=== PATIENT | female | born 1985 | race Caucasian/White ===

== ENCOUNTER 2017-03-21 11:10 | Emergency (ER) | payer OTHER ==
[~2017-03-21] VITALS: Ht 167.6 cm; Wt 68.9 kg
[2017-03-21] MEDS ORDERED: DERMABOND TOPICAL SKIN ADHESIVE TOP ONE (12:45)
[2017-03-21] MEDS ORDERED: AMOX500C PO (12:51)
[2017-03-21 12:56] VITALS: BP 112/58
== END 2017-03-21 13:09 | disposition home or self-care (01) ==
LOC: M ED 12:58
DX: S61.412A Laceration without foreign body of left hand, initial encounter (principal); W26.0XXA Contact with knife, initial encounter; Y92.019 Unspecified place in single-family (private) house as the place of occurrence of the external cause; Y93.89 Activity, other specified; Y99.8 Other external cause status; Z88.2 Allergy status to sulfonamides

== ENCOUNTER → 2017-04-23 | Outpatient (CLI) | payer OTHER ==
[~2017-04-23] MED LIST: AMOX500C PO
[2017-04-23 13:30] LABS: MEAN CORPUSCULAR HEMOGLOBIN 31.9 pg (27.0-33.0); MEAN CORPUSCULAR HGB CONC 34.3 g/dl (32.0-36.5); MEAN CORPUSCULAR VOLUME 92.9 fl (80.0-96.0); RED CELL DISTRIBUTION WIDTH 12.5 % (11.5-14.5)
[2017-04-24 08:55] LABS: WHITE BLOOD COUNT 9.6 K/mm3 (4.0-10.0)
== END ==
LOC: M LAB 11:22
PROVIDERS: ATTEND Advanced Practice Midwife
DX: Z34.82 Encounter for supervision of other normal pregnancy, second trimester (principal)

== ENCOUNTER 2017-06-14 15:55 | Emergency (ER) | payer OTHER ==
[~2017-06-14] VITALS: Ht 167.6 cm; Wt 75.9 kg
[2017-06-14] MEDS ORDERED: NS 500 ML IV ONE (16:45)
[2017-06-14] MEDS ORDERED: NS 1,000 ML IV SCH (16:45)
[2017-06-14 17:23] LABS: BASO % 0.5 % (0.0-1.0); EOS % 0.3 % (0.0-3.0); LARGE UNSTAINED CELL # 0.2 K/mm3 (0.0-0.4); LARGE UNSTAINED CELL % 1.6 % (0.0-4.0); LYMPH # 1.5 K/mm3 (1.5-4.5); LYMPH % 16.4 % (24.0-44.0); MEAN CORPUSCULAR HGB CONC 34.3 g/dl (32.0-36.5); MEAN CORPUSCULAR VOLUME 87.5 fl (80.0-96.0); MONO # 0.5 K/mm3 (0.0-0.8); MONO % 5.2 % (0.0-5.0); NEUTROPHILS % 76.1 % (36.0-66.0); PLATELET COUNT, AUTOMATED 204 k/mm3 (150-450); RED CELL DISTRIBUTION WIDTH 12.5 % (11.5-14.5); WHITE BLOOD COUNT 9.2 K/mm3 (4.0-10.0)
[2017-06-14 17:29] LABS: INR 0.89
[2017-06-14 17:36] LABS: ALBUMIN 2.5 GM/DL (3.2-5.2); ALT/SGPT 14 U/L (12-78); ANION GAP 7 MEQ/L (8-16); AST/SGOT 12 U/L (15-37); BILIRUBIN,DIRECT < 0.1 MG/DL (0.0-0.2); BLOOD UREA NITROGEN 6 MG/DL (7-18); CALCIUM LEVEL 8.1 MG/DL (8.5-10.1); CARBON DIOXIDE LEVEL 26 MEQ/L (21-32); CHLORIDE LEVEL 105 MEQ/L (98-107); CREATININE FOR GFR 0.75 MG/DL (0.55-1.02); GLOMERULAR FILTRATION RATE > 60.0 (>60); GLUCOSE, FASTING 64 MG/DL (70-105); MAGNESIUM LEVEL 1.7 MG/DL (1.8-2.4); POTASSIUM SERUM 3.7 MEQ/L (3.5-5.1); SODIUM LEVEL 138 MEQ/L (136-145)
[2017-06-14 17:42] LABS: ALBUMIN/GLOBULIN RATIO 0.64 (1.00-1.93); ALKALINE PHOSPHATASE 139 U/L (45-117); BILIRUBIN,TOTAL 0.2 MG/DL (0.2-1.0); FREE T4 0.98 NG/DL (0.76-1.46); TOTAL PROTEIN 6.4 GM/DL (6.4-8.2)
--- NOTE | 2017-06-14 18:29 | ECGEPIP ---
Stationary ECG Study [facility] - ED Test Date: 2017-06-14 Pat Name: RUTH CASTRO Department: Room: - Gender: F Psychiatry Resident: abel : 1985 Requested By: Lore Sheldon Order Number: [id number] Reading MD: Lore Sheldon Measurements Intervals [place] Rate: 108 P: 48 ME: 137 QRS: 41 QRSD: 78 T: 29 QT: 315 QTc: 423 Interpretive Statements SINUS TACHYCARDIA NONSPECIFIC T-WAVE ABNORMALITY ABNORMAL RHYTHM ECG NO PRIOR FOR COMPARISON Electronically Signed On 06-14-2017 18:29:05 EDT by Lore Sheldon
--- NOTE | 2017-06-14 18:40 | REPUSA ---
CLINICAL HISTORY: Chest pain. COMMENTS: Real time sonography with duplex doppler of the extremities bilaterally was performed with attention to the major deep venous structures. Evaluation reveals the common femoral, superficial femoral, popliteal and posterior tibial veins vik aterally to be completely compressible without intraluminal thrombus. There is normal spontaneous pha sic flow and augmentation in all deep veins. The greater saphenous/common femoral vein junctions are patent bilaterally. IMPRESSION: No evidence of DVT in the lower extremities bilaterally. Thank you for your kind referral of this patient.
[2017-06-14] MEDS ORDERED: ACETAMINOPHEN TAB 650MG DOSE (2X325MG) PO ONE (18:45)
[2017-06-14] MEDS ORDERED: MAG SULF 1GM/100ML (MAG RUN) 1 GM in APPROPRIATE DILUENT 1 EA IV ONE (18:45)
[2017-06-14] MEDS ORDERED: ISOVUE-370 76% 100ML VIAL (Q9967) As Ordered ONE (18:47)
--- NOTE | 2017-06-14 20:00 | REPUSA ---
History: CP. Comparison: No prior CTA of the chest available Technique: A CT-pulmonary angiogram was performed. A dose of intravenous contrast was administered. A xial images were displayed, as were sagittal and coronal reconstructions. Findings: No CT evidence of pulmonary embolism is identified. There is no evidence of thoracic aortic aneurysm or dissection. No air space consolidation is identified in the lungs. There is no evidence of pulmonary edema. No pa thologically enlarged hilar or mediastinal lymph nodes are identified. No significant pleural or jaylen cardial fluid collection is seen. There is no evidence of pneumothorax. The included portion of the upper abdomen demonstrates a 15 mm water density nodule in the left adren al gland compatible with adenoma. Impression: No evidence of pulmonary embolism is identified. 15 mm left adrenal adenoma.
[2017-06-14 20:29] VITALS: BP 104/60
--- NOTE | 2017-06-15 07:45 | REP ---
PA and lateral chest: There are no comparisons. The lung escalante are clear. The cardiac size is normal The srinivasa, mediastinum, and bony thorax are unremarkable. Impression: Negative PA and lateral chest. Signed by Jose Antonio Morel MD 06/15/2017 07:36 A
== END 2017-06-14 20:51 | disposition home or self-care (01) ==
LOC: M ED 15:55
DX: S29.001A Unspecified injury of muscle and tendon of front wall of thorax, initial encounter (principal); D27.9 Benign neoplasm of unspecified ovary; Z87.891 Personal history of nicotine dependence; Z82.49 Family history of ischemic heart disease and other diseases of the circulatory system; X58.XXXA Exposure to other specified factors, initial encounter; Y92.9 Unspecified place or not applicable; Y93.9 Activity, unspecified; Y99.9 Unspecified external cause status; R00.0 Tachycardia, unspecified; R94.31 Abnormal electrocardiogram [ECG] [EKG]
CPT/HCPCS: 71020; 71275; 80048; 80076; 82550; 82553; 83690; 83735; 83880; 84439; 84443; 85025; 85610; 85730; 86140; 93005; 93041; 93970; 94760; 99284; J3475; Q9967

== ENCOUNTER → 2017-06-18 | Outpatient (REF) | payer OTHER ==
[~2017-06-18] MED LIST changes: +ACET30TAB PO; +ACET50TA PO; +IBUP-1114 PO; +PRENTAB9 PO; +UNIS25TA2 PO
== END ==
LOC: M LAB REF 12:55
PROVIDERS: ATTEND Advanced Practice Midwife
DX: Z34.83 Encounter for supervision of other normal pregnancy, third trimester (principal)

== ENCOUNTER 2017-07-10 15:40 | Inpatient (IN) | payer OTHER ==
[~2017-07-10] VITALS: Ht 167.6 cm; Wt 75.0 kg
[~2017-07-10 15:40] MED LIST changes: -ACET30TAB PO; -ACET50TA PO; -IBUP-1114 PO; -PRENTAB9 PO; -UNIS25TA2 PO
[2017-07-10 16:01] VITALS: BP 124/75
[2017-07-10] MEDS ORDERED: LACTATED RINGER'S 1000 ML IV STA (16:41)
[2017-07-10] MEDS ORDERED: PENICILLIN G POTASSIUM IV 5 MU in D5W MINI-BAG PLUS 100 ML IV STA (16:41)
[2017-07-10] MEDS ORDERED: UNIS25TA2 PO (16:53)
[2017-07-10] MEDS ORDERED: LR 1,000 ML IV SCH (16:56)
[2017-07-10] MEDS ORDERED: miSOPROStol 50 MCG 1/2 TAB (S0191) PO ONE (17:00)
[2017-07-10] MEDS ORDERED: OXYTOCIN DRIP 30 UNITS in APPROPRIATE DILUENT 1 EA IV SCH (17:00)
--- NOTE | 2017-07-10 17:32 | HPEPDOC ---
Obstetrical History & Physical General Date of Admission Jul 10, 2017 at 15:40 Primary Care Physician: MONTY MURPHY CNM History of Present Illness Patient is a 32 year old female who is a at 39.4 weeks with an DAYSI of 08/19 based off of her 1st trimester ultrasound, which is consistent with her LMP. She initiated care with Nunu Cee CNM and transferred care at 26 weeks gestation to [facility]. Her has been uncomplicated. She presents to L&D for a scheduled elective induction at term. She denies regular contractions, vaginal bleeding, or leaking of fluid. Reports active movement. Chief Complaint: Induction of labor Information Provided By: Patient Age: 32 : 2 Term: 1 Pre-term: 0 Abortions: 0 Livin Care Care: Good Care Number of Visits: 14 Dating Final EDC: Jul 13, 2017 Final EDC by: 1st trimester (US) LMP: Oct 14, 2016 EGA at Admission: 39.4 Antepartum Course Height (inches): 66 Pre- weight (lbs.): 145 Admission Weight (lbs.): 171 Change in Weight (lbs.): 26 Past Medical History Past Obstetrical History : Past Obstetrical History: Multigravida Gestation: 41 Type of Delivery: Spontaneous Vaginal Del. (November 2015) Sex of : Male (weighting 8 lbs. 8 oz. ) Complications: No Past Medical History Medical History Varicella and mononucleosis as a child. anxiety. Labral tear of right hip. Impingement of left shoulder. Surgical History: Breast reduction, Tonsilectomy Family History Significant Family History: Diabetes, Heart disease Social History Social history No history of STDs. Marital Status: Family situation: Spouse/partner home Psychosocial History: Anxiety * Smoker: former Smoker Alcohol: Denies Drugs: denies Abuse Violence Screening Have you been hit/kicked/slapp: No Have you been sexually assault: No Imunizations Tdap status: current Allergies Coded Allergies: Sulfa Antibiotics (Verified Allergy, Unknown, unkown , 07/10/17) PT STATES FAMILY SEVERE REACTION HAS NOT ATTEMPTED TO TAKE SULFA MEDS Medications Miscellaneous Medications (Unisom) 25 Mg Tab, 12.5 MG PO Physical Examination Physical Examination GENERAL: Alert and oriented times three. BREAST: . ABDOMEN: Gravid and non-tender to touch. FETUS: Is vertex (VTX) by sterile vaginal examination (SVE), fetus is vertex ( VTX) by Luis Eduardo. EFW via Luis Eduardo's is 3800 grams. HEART RATE: Regular rate and rhythm. LUNGS: Clear to auscultation (CTA). EXTREMITIES: No edema. No clonus. Vital Signs/I&O Vital Signs Date Time Temp Pulse Resp B/P (MAP) Pulse Ox O2 Delivery O2 Flow Rate FiO2 07/10/17 16:01 98.3 115 18 124/75 (91) Laboratory Data Urine Culture: No Growth Pertinent Laboratoy Data Blood Type: O+ RBC Antibody Screen: Negative HIV: Negative Hepatitis B: Negative Rapid Plasma Reagin: Nonreactive Rubella: Immune Chlamydia/Gonorrhea: Negative Group B Streptococcus: Positive Quad Screen Test: Negative Glucose Tolerance Test: 64 Vaginal Examination Dilation: 3 cm Effacement: 75% Station: -1 Cervical Consistency: Soft Cervical Position: Anterior Presentation: Cephalic presentation Position: Vertex (occiput) Assessment Heart Rate (FHR): 135 Variability: Moderate Accelerations: Positive Decelerations: None Tocometer Contractions: Yes Frequency: irregular Multi-drug resistant Organism: No history of MDRO Assessment/Plan Assessment IUP at 39.4 weeks gestation elective induction of labor GBS positive Plan Admit to labor and delivery. Clear liquid diet. OOB ad stephanie. Start IV. Labs and vital signs per protocol. PCN G ordered for GBS. Pitocin per order. Reviewed risks, benefits, and alternatives with patient prior to starting induction. Patient consents to induction. Anticipate cervical change and . MONTY MURPHY CNM Jul 10, 2017 17:31
[2017-07-10 17:33] LABS: MEAN CORPUSCULAR HEMOGLOBIN 28.8 pg (27.0-33.0); MEAN CORPUSCULAR HGB CONC 33.7 g/dl (32.0-36.5); MEAN CORPUSCULAR VOLUME 85.5 fl (80.0-96.0); RED CELL DISTRIBUTION WIDTH 12.3 % (11.5-14.5); WHITE BLOOD COUNT 10.9 K/mm3 (4.0-10.0)
[2017-07-10 17:44] VITALS: BP 112/68
[2017-07-10 18:16] VITALS: BP 105/62
[2017-07-10] MEDS ORDERED: FENTANYL 2MCG/ML ROPIVACAINE 0.2% IN 0.9% NACL 200ML IVBAG As Ordered ONE (19:09)
[2017-07-10] MEDS ORDERED: LACTATED RINGER'S 1000 ML IV PRN (19:45)
[2017-07-10] MEDS ORDERED: FENTANYL/ROPIVACAINE/NACL BAG 200 ML EPIDURAL SCH (19:45)
[2017-07-10] MEDS ORDERED: ONDANSETRON 4MG/2ML VIAL (J2405) IV PRN (19:45)
[2017-07-10] MEDS ORDERED: REFRIGERATOR IV KEYS XX PRN (19:45)
[2017-07-10] MEDS ORDERED: ePHEDrine SULFATE 25 MG/5 ML(5MG/ML) SYRINGE IV PRN (19:45)
[2017-07-10] MEDS ORDERED: EPIDURAL/PCA KEYS XX PRN (19:45)
[2017-07-10] MEDS ORDERED: EPIDURAL COMMENT XX SCH (19:45)
[2017-07-10] MEDS ORDERED: NALOXONE INJ 0.4 MG/1 ML VIAL (J2310) IV PRN (19:45)
[2017-07-10] MEDS ORDERED: diphenhydrAMINE INJ 50MG/ML VIAL (J1200) IV PRN (19:45)
[2017-07-10] MEDS ORDERED: PENICILLIN G POTASSIUM IV 2.5 MU in D5W 100 ML IV SCH (22:00)
--- NOTE | 2017-07-10 23:03 | IPNPDOC ---
Text Note Date of Service The patient was seen on 07/10/17. NOTE SUBJECTIVE: Patient comfortable with epidural. OBJECTIVE: VS stable. FHR: 125, moderate variability, positive accelerations, no decelerations. Contractions every 2 to 4 minutes. Pitocin at 6 mu. AROM: moderate amount of clear fluid noted. SVE: 4/75/-1. Assessment: IUP at 39.4 wks gestation, elective induction of labor Plan: Continue with Pitocin. Anticipate cervical change and . VS,Fishbone, I+O VS, Fishbone, I+O Laboratory Tests 07/10/17 17:22 Red Blood Count 3.72 L, Mean Corpuscular Volume 85.5, Mean Corpuscular Hemoglobin 28.8, Mean Corpuscular Hemoglobin Concent 33.7, Red Cell Distribution Width 12.3 Vital Signs Date Time Temp Pulse Resp B/P (MAP) Pulse Ox O2 Delivery O2 Flow Rate FiO2 07/10/17 18:16 98.0 91 18 105/62 (76) MONTY MURPHY CNM Jul 10, 2017 23:03
[2017-07-11] MEDS ORDERED: OXYTOCIN DRIP 30 UNITS in APPROPRIATE DILUENT 1 EA IV SCH (02:24)
[2017-07-11] MEDS ORDERED: ANUSOL HC CREAM 30GM TOP PRN (02:30)
[2017-07-11] MEDS ORDERED: METHYLERGONOVINE MALEATE 0.2 MG TAB PO PRN (02:30)
[2017-07-11] MEDS ORDERED: RHOGAM 300 MCG (1500 IU) INJ (J2790) IM SCH (02:30)
[2017-07-11] MEDS ORDERED: DOCUSATE SODIUM 100 MG CAP PO PRN (02:30)
[2017-07-11] MEDS ORDERED: MEASLES,MUMPS,RUBELLA VACCINE INJ (MMR-II) (90707) SC SCH (02:30)
[2017-07-11] MEDS ORDERED: DIBUCAINE 1% OINTMENT 30GM TOP PRN (02:30)
--- NOTE | 2017-07-11 02:35 | DNPDOC ---
[facility] Delivery Note Delivery Note DATE OF DELIVERY: 07/11/17 at 0136 PREDELIVERY DIAGNOSIS: 39 5/7 weeks' gestation and labor. PROCEDURE: Spontaneous vaginal delivery. PROVIDER: Monty Street CNM, WHNP ANESTHESIA: Epidural. ESTIMATED BLOOD LOSS: 300 mL. FINDINGS: 7 pounds 2 ounces, 3230 grams; male , Score 9/9. DELIVERY SUMMARY: Patient is a 32 year old female who presented to labor and delivery for an elective induction of labor at term. She received Pitocin for her induction and an epidural for pain management. She progressed to fully dilated at 0106. The patient pushed to a living male in the REBECA position with restitution to LOT at 0136. The anterior shoulder delivered with ease and the corpus immediately followed. The baby was placed on the maternal abdomen skin to skin active and crying. The cord was clamped times 2 and cut by the patient' s mother after 4 minutes of delay. A 3 vessel cord was noted. The placenta delivered spontaneously and intact via Randolph mechanism at 0142. Uterine hemostasis was achieved by rapid infusion of IV pitocin and fundal massage. The perineam and vagina was inspected and found to have a 1st degree perineal laceration and a left sulcus tear that was shallow. Both were repaired with a 3.[address]-1. Appropriated hemostasis was achieved. EBL noted to be 300 cc. The mother intends to breastfeed. A consult was done due to mom's flat nipples. Mom and baby are both in stable condition. MONTY STREET CNM Jul 11, 2017 02:35
[2017-07-11 03:30] VITALS: BP 116/56
[2017-07-11 05:56] VITALS: BP 109/57
[2017-07-11] MEDS: IBUPROFEN 800 MG TAB PO PRN ×2 (06:24→17:12)
[2017-07-11] MEDS: PRENATAL VITAMINS CHEWABLE TABLET PO SCH (09:00)
[2017-07-11] MEDS: ACETAMINOPHEN 500 MG TAB PO PRN ×2 (12:57→20:28)
[2017-07-11 18:00] VITALS: BP 131/76
[2017-07-12] MEDS: IBUPROFEN 800 MG TAB PO PRN (02:08)
[2017-07-12 05:40] VITALS: BP 113/63
[2017-07-12] MEDS ORDERED: ACET30TAB PO (07:26)
[2017-07-12] MEDS ORDERED: ACETAMINOPH W/CODEINE #3 TAB UD PO PRN (07:30)
[2017-07-12] MEDS: PRENATAL VITAMINS CHEWABLE TABLET PO SCH (07:43)
[2017-07-12] MEDS ORDERED: PRENTAB9 PO (08:39)
[2017-07-12] MEDS ORDERED: ACET50TA PO (08:40)
[2017-07-12] MEDS ORDERED: IBUP-1114 PO (08:41)
[2017-07-12] MEDS ORDERED: INFLUENZA QUADRIVALENT PF VACCINE 0.5ML SYRINGE (90686) IM ONE ×2 (09:00→11:00)
== END 2017-07-12 11:15 | disposition home or self-care (01) | DRG 775 ==
LOC: M LDI 15:40 → M OBS 07-11 02:30
PROVIDERS: ADMIT Advanced Practice Midwife; ATTEND Advanced Practice Midwife
PROC: 10907ZC Drainage of Amniotic Fluid, Therapeutic from Products of Conception, Via Natural or Artificial Opening (ICD-10-PCS; 2017-07-10)
PROC: 3E033VJ Introduction of Other Hormone into Peripheral Vein, Percutaneous Approach (ICD-10-PCS; 2017-07-10)
PROC: 10E0XZZ Delivery of Products of Conception, External Approach (ICD-10-PCS; principal; 2017-07-11)
PROC: 0HQ9XZZ Repair Perineum Skin, External Approach (ICD-10-PCS; 2017-07-11)
DX: O99.824 Streptococcus B carrier state complicating childbirth (principal); Z3A.39 39 weeks gestation of pregnancy; O70.0 First degree perineal laceration during delivery; Z37.0 Single live birth; Z88.2 Allergy status to sulfonamides